=== PATIENT | male | born 1955 | race African-American/Black ===

== ENCOUNTER 2020-02-07 05:02 | Inpatient (IN) | payer OTHER ==
[~2020-02-07] VITALS: Ht 170.2 cm; Wt 120.7 kg
[2020-02-07] MEDS ORDERED: Morphine Sulfate 4mg/ml Inj (IV USE ONLY) IVP ONE (05:15)
[2020-02-07] MEDS ORDERED: Aspirin Baby 81mg ORAL ONE (05:15)
--- NOTE | 2020-02-07 05:15 | Emergency Room Report ---
History of Present Illness General Chief Complaint: Dyspnea/Respdistress Source: Patient (Shashank Smith MD) Present Illness HPI This is a 64-year-old male with a history of CHF, chronic pain and seizure. He presents with chief complaint of body pain, leg pain and shortness of breath. Onset 1 day. He was just admitted to [facility] 2 days ago and was just discharged yesterday. He came back here and called 911. Patient denies any fever or chills. Said his pain is 10 out of 10. [place] short of breath. Worse with exertion. Better with rest. No nausea no vomiting. No fever chills. (Shashank Smith MD) Allergies: Coded Allergies: No Known Allergies (Unverified , 02/07/20) COVID-19 Screening Contact w/high risk pt: Yes Experienced COVID-19 symptoms?: Yes COVID-19 Testing performed SENIOR SERVICE AIDE: No (Shashank Smith MD) Patient History Past Medical History: see triage record, old chart reviewed, HTN, CAD, CHF Past Surgical History: other Pertinent Family History: none Social History: Denies: smoking Immunizations: other Reviewed Nursing Documentation: PMH: Agreed; PSxH: Agreed (Shashank Smith MD) Nursing Documentation-PMH Hx Cardiac Problems: Yes - afib Hx Hypertension: Yes History Of Psychiatric Problem: Yes Hx Seizures: Yes (Shashank Smith MD) Review of Systems Eye: Denies: eye pain, blurred vision ENT: Denies: ear pain, nose congestion, throat swelling Respiratory: Reports: shortness of breath; Denies: cough Cardiovascular: Reports: chest pain; Denies: palpitations Gastrointestinal: Reports: abdominal pain; Denies: diarrhea, nausea, vomiting Musculoskeletal: Reports: muscle pain; Denies: back pain, joint pain Skin: Denies: rash Neurological: Denies: headache, numbness Endocrine: Denies: increased thirst, increased urine Hematologic/Lymphatic: Denies: easy bruising All Other Systems: negative except mentioned in HPI (Shashank Smith MD) Physical Exam Vital Signs Date Time Temp Pulse Resp B/P (MAP) Pulse Ox O2 Delivery O2 Flow Rate FiO2 02/07/20 05:03 97.3 98 20 124/86 (99) 95 Room Air Vitals unremarkable Sp02 EP Interpretation: reviewed, normal General Appearance: well appearing, no apparent distress, alert, obese Head: normocephalic, atraumatic Eyes: bilateral eye PERRL, bilateral eye EOMI ENT: hearing grossly normal, normal pharynx Neck: full range of motion, supple, no meningismus Respiratory: chest non-tender, rales Cardiovascular #1: no murmur, irregularly irregular Gastrointestinal: normal bowel sounds, non tender, no mass, no organomegaly, no bruit, non-distended Musculoskeletal: back normal, normal range of motion, gait/station normal, tender - Lymphedema and 1+ pitting edema, swelling Psychiatric: mood/affect normal (Shashank Smith MD) Medical Decision Making Diagnostic Impression: Primary Impression: Acute exacerbation of CHF (congestive heart failure) Qualified Codes: I50.9 - Heart failure, unspecified Additional Impressions: Atrial fibrillation with normal ventricular rate Chronic pain Qualified Codes: G89.4 - Chronic pain syndrome Morbid obesity Cocaine abuse ERIN (acute kidney injury) Anemia Qualified Codes: D64.9 - Anemia, unspecified ER Course Patient presents presents with shortness of breath and chest pain. He has CHF exacerbation. No evidence of ACS, PE, dissection to name a few. Patient will be admitted versus transfer. (Shsahank Smith MD) ER Course Patient was endorsed to me by Dr. Smith pending laboratory testing. Prior history of CHF. Patient had negative troponin with elevated BNP consistent with congestive heart failure. Had previously been given diuretics by Dr. Smith. Patient was endorsed with Dr. Magallon at [facility] who agreed to accept patient. Insurance company was unable to arrange a timely transfer. Patient was discussed with covering physician for [facility] due to panel physician. Labs Test 02/07/20 05:20 White Blood Count 6.4 K/UL (4.8-10.8) Red Blood Count 3.29 M/UL (4.70-6.10) Hemoglobin 8.0 G/DL (14.2-18.0) Hematocrit 28.5 % (42.0-52.0) Mean Corpuscular Volume 87 FL (80-99) Mean Corpuscular Hemoglobin 24.5 PG (27.0-31.0) Mean Corpuscular Hemoglobin Concent 28.2 G/DL (32.0-36.0) Red Cell Distribution Width 22.5 % (11.6-14.8) Platelet Count 240 K/UL (150-450) Mean Platelet Volume 6.0 FL (6.5-10.1) Neutrophils (%) (Auto) 61.9 % (45.0-75.0) Lymphocytes (%) (Auto) 21.1 % (20.0-45.0) Monocytes (%) (Auto) 11.3 % (1.0-10.0) Eosinophils (%) (Auto) 4.9 % (0.0-3.0) Basophils (%) (Auto) 0.8 % (0.0-2.0) Sodium Level 143 MMOL/L (136-145) Potassium Level 4.0 MMOL/L (3.5-5.1) Chloride Level 105 MMOL/L (98-107) Carbon Dioxide Level 30 MMOL/L (21-32) Anion Gap 8 mmol/L (5-15) Blood Urea Nitrogen 39 mg/dL (7-18) Creatinine 2.5 MG/DL (0.55-1.30) Estimat Glomerular Filtration Rate 31.5 mL/min (>60) Glucose Level 125 MG/DL (74-106) Calcium Level 8.4 MG/DL (8.5-10.1) Total Bilirubin 0.6 MG/DL (0.2-1.0) Aspartate Amino Transf (AST/SGOT) 37 U/L (15-37) Alanine Aminotransferase (ALT/SGPT) 24 U/L (12-78) Alkaline Phosphatase 143 U/L (46-116) Troponin I 0.015 ng/mL (0.000-0.056) Pro-B-Type Natriuretic Peptide 2558 pg/mL (0-125) Total Protein 7.1 G/DL (6.4-8.2) Albumin 2.6 G/DL (3.4-5.0) Globulin 4.5 g/dL Albumin/Globulin Ratio 0.6 (1.0-2.7) (Iggy Quinteros MD) EKG Diagnostic Results Rate: normal Rhythm: other ST Segments: other - NSST changes ASA given to the pt in ED: Yes (Shashank Smith MD) Rhythm Strip Diag. Results EP Interpretation: yes Rate: 94 Rhythm: no PVC's, no ectopy, other - afib (Shashank Smith MD) Chest X-Ray Diagnostic Results Chest X-Ray Diagnostic Results : Chest X-Ray Ordered: Yes # of Views/Limited/Complete: 1 View Indication: Shortness of Breath EP Interpretation: Yes Interpretation: no consolidation, no effusion, no pneumothorax, other - CM with chf Impression: Other - CM with chf Electronically Signed by: Shashank Smith MD (Shashank Smith MD) Last Vital Signs Date Time Temp Pulse Resp B/P (MAP) Pulse Ox O2 Delivery O2 Flow Rate FiO2 02/07/20 05:03 97.3 98 20 124/86 (99) 95 Room Air Status: improved (Shashank Smith MD) Status: improved (Iggy Quinteros MD) Disposition: ADMITTED INPATIENT Condition: Serious Shashank Smith MD Feb 07, 2020 05:15 Iggy Quinteros MD Feb 07, 2020 06:43
--- NOTE | 2020-02-07 05:46 | Diagnostic Imaging Report ---
EXAM: XR Chest, 1 View CLINICAL HISTORY: SOB TECHNIQUE: Frontal view of the chest. COMPARISON: No relevant prior studies available. FINDINGS: Lungs: Mild perihilar lower lobe mixed interstitial and alveolar infiltrates, likely representing pulmonary edema. Pleural space: Mild bilateral pleural effusions. No pneumothorax. Heart: Unremarkable. No cardiomegaly. Mediastinum: Unremarkable. Bones/joints: Unremarkable. Other findings: Moderate cardiomegaly IMPRESSION: 1. Perihilar and lower lobe infiltrates most consistent with pulmonary edema. Bilateral lower lobe pneumonia considered less likely. 2. Small bilateral pleural effusions
[2020-02-07 05:54] LABS: BASOPHILS % (AUTO) 0.8 % (0.0-2.0); EOSINOPHILS % (AUTO) 4.9 % (0.0-3.0); HEMATOCRIT 28.5 % (42.0-52.0); LYMPHOCYTES % (AUTO) 21.1 % (20.0-45.0); MEAN CORPUSCULAR VOLUME 87 FL (80-99); MONOCYTES % (AUTO) 11.3 % (1.0-10.0); NEUTROPHILS % (AUTO) 61.9 % (45.0-75.0); PLATELET COUNT 240 K/UL (150-450); RED BLOOD COUNT 3.29 M/UL (4.70-6.10); RED CELL DISTRIBUTION WIDTH 22.5 % (11.6-14.8); WHITE BLOOD COUNT 6.4 K/UL (4.8-10.8)
[2020-02-07 06:00] VITALS: BP 113/74
[2020-02-07 06:18] LABS: ALANINE AMINOTRANSFERASE 24 U/L (12-78); ALBUMIN 2.6 G/DL (3.4-5.0); ALBUMIN/GLOBULIN RATIO 0.6 (1.0-2.7); ALKALINE PHOSPHATASE 143 U/L (46-116); ANION GAP 8 mmol/L (5-15); ASPARTATE AMINO TRANSFERASE 37 U/L (15-37); BILIRUBIN,TOTAL 0.6 MG/DL (0.2-1.0); BLOOD UREA NITROGEN 39 mg/dL (7-18); CALCIUM 8.4 MG/DL (8.5-10.1); CARBON DIOXIDE 30 MMOL/L (21-32); CHLORIDE 105 MMOL/L (98-107); CREATININE 2.5 MG/DL (0.55-1.30); SODIUM 143 MMOL/L (136-145)
[2020-02-07 06:50] VITALS: BP 107/62
[2020-02-07 07:30] VITALS: BP 107/68
[2020-02-07 08:00] VITALS: BP 123/52
[2020-02-07] MEDS: Heparin 5000 units/ml inj SUBQ SCH ×2 (09:06→20:36)
[2020-02-07] MEDS ORDERED: NORCO 5-325 TA1 EAC1 ORAL (09:17)
[2020-02-07] MEDS ORDERED: SEROQUEL100 MG ORAL (09:17)
[2020-02-07 09:45] VITALS: BP 125/85
--- NOTE | 2020-02-07 10:41 | History and Physical ---
History of Present Illness General Date patient seen: Feb 07, 2020 Time patient seen: 10:31 Reason for Hospitalization: Heart failure exacerbation Present Illness HPI This is a 64 year old male with a history of CHF who was reportedly just discharged from [facility] yesterday. who is presenting with recurrent shortness of breath. He refused to answer most of my questions and I was not able to obtain a history from him. History per ED report was that he was admitted to [facility] and discharged yesterday. He presented again with shortness of breath. Evaluation in the ED showed EKG/troponin reassuring for ACS although BNP was very elevated. His exam also was consistent with volume overload so he was given Lasix and then admitted for further management of heart failure. Allergies: Coded Allergies: No Known Allergies (Unverified , 02/07/20) COVID-19 Screening Contact w/high risk pt: Yes Experienced COVID-19 symptoms?: Yes COVID-19 symptoms experienced: Shortness of Breath Medication History Scheduled Quetiapine Fumarate* (Seroquel*), 300 MG ORAL DAILY, (Reported) Scheduled PRN Hydrocodone Bit/Acetaminophen 5-325* ([place] 5-325 Tablet*), 1 TAB ORAL Q4H PRN for For Pain, (Reported) Medications Narrative refused to tell me what medications he takes Patient History Limited by: other - refusal History Provided By: Patient, Medical Record Healthcare decision maker N Resuscitation status Advanced Directive on File Past Medical/Surgical History Past Medical/Surgical History: (1) Depression (2) Heart failure (3) Atrial fibrillation with normal ventricular rate (4) Chronic pain Family History Family History: Patient reports no known family medical history. Review of Systems ROS Narrative unable to obtain review of systems as patient refusing to answer questions Physical Exam General Appearance: lethargic, other - sleepy but arousable, non-cooperative Lines, tubes and drains: peripheral HEENT: normocephalic, atraumatic, anicteric, PERRL Neck: non-tender, normal alignment, supple, normal inspection Respiratory/Chest: chest wall non-tender, no respiratory distress, crackles/ rales Cardiovascular/Chest: normal rate, JVD, irregularly irregular Abdomen: normal bowel sounds, non tender, distended Extremities: severe edema Skin Exam: normal pigmentation, warm/dry Neurologic: no motor/sensory deficits, other - refuses to cooperate with exam or questioning. movign all extremities spontaneously Last 24 Hour Vital Signs Date Time Temp Pulse Resp B/P (MAP) Pulse Ox O2 Delivery O2 Flow Rate FiO2 02/07/20 10:06 97 Nasal Cannula 2.0 28 02/07/20 09:13 82 26 132/99 95 Nasal Cannula 2.0 02/07/20 08:00 90 20 123/52 96 Nasal Cannula 2.0 02/07/20 07:30 91 20 107/68 94 Room Air 02/07/20 06:50 97.3 84 18 107/62 96 Room Air 02/07/20 06:09 97.3 02/07/20 06:00 97.3 94 24 113/74 96 Room Air 02/07/20 05:20 98 20 Room Air 02/07/20 05:03 97.3 98 20 124/86 (99) 95 Room Air Laboratory Tests Test 02/07/20 05:20 02/07/20 09:56 White Blood Count 6.4 K/UL (4.8-10.8) Red Blood Count 3.29 M/UL (4.70-6.10) L Hemoglobin 8.0 G/DL (14.2-18.0) L Hematocrit 28.5 % (42.0-52.0) L Mean Corpuscular Volume 87 FL (80-99) Mean Corpuscular Hemoglobin 24.5 PG (27.0-31.0) L Mean Corpuscular Hemoglobin Concent 28.2 G/DL (32.0-36.0) L Red Cell Distribution Width 22.5 % (11.6-14.8) H Platelet Count 240 K/UL (150-450) Mean Platelet Volume 6.0 FL (6.5-10.1) L Neutrophils (%) (Auto) 61.9 % (45.0-75.0) Lymphocytes (%) (Auto) 21.1 % (20.0-45.0) Monocytes (%) (Auto) 11.3 % (1.0-10.0) H Eosinophils (%) (Auto) 4.9 % (0.0-3.0) H Basophils (%) (Auto) 0.8 % (0.0-2.0) Sodium Level 143 MMOL/L (136-145) Potassium Level 4.0 MMOL/L (3.5-5.1) Chloride Level 105 MMOL/L (98-107) Carbon Dioxide Level 30 MMOL/L (21-32) Anion Gap 8 mmol/L (5-15) Blood Urea Nitrogen 39 mg/dL (7-18) H Creatinine 2.5 MG/DL (0.55-1.30) H Estimat Glomerular Filtration Rate 31.5 mL/min (>60) Glucose Level 125 MG/DL (74-106) H Calcium Level 8.4 MG/DL (8.5-10.1) L Total Bilirubin 0.6 MG/DL (0.2-1.0) Aspartate Amino Transf (AST/SGOT) 37 U/L (15-37) Alanine Aminotransferase (ALT/SGPT) 24 U/L (12-78) Alkaline Phosphatase 143 U/L (46-116) H Troponin I 0.015 ng/mL (0.000-0.056) Pro-B-Type Natriuretic Peptide 2558 pg/mL (0-125) H Total Protein 7.1 G/DL (6.4-8.2) Albumin 2.6 G/DL (3.4-5.0) L Globulin 4.5 g/dL Albumin/Globulin Ratio 0.6 (1.0-2.7) L Arterial Blood pH 7.382 (7.350-7.450) Arterial Blood Partial Pressure CO2 43.3 mmHg (35.0-45.0) Arterial Blood Partial Pressure O2 103.7 mmHg (75.0-100.0) H Arterial Blood HCO3 25.2 mmol/L (22.0-26.0) Arterial Blood Oxygen Saturation 97.0 % (95-100) Arterial Blood Base Excess 0 (-2-2) Daniel Test Positive Height (Feet): 5 Height (Inches): 8.00 Weight (Pounds): 230 Medications Current Medications Medications (Trade) Dose Ordered Sig/Radha Route PRN Reason Start Time Stop Time Status Last Admin Dose Admin Dextrose (Dextrose 50%) 25 ml Q30M PRN IV Hypoglycemia 02/07/20 08:00 05/07/20 07:59 Dextrose (Dextrose 50%) 50 ml Q30M PRN IV Hypoglycemia 02/07/20 08:00 05/07/20 07:59 Furosemide (Lasix) 80 mg ONCE IV 7/26/20 10:00 02/07/20 11:00 Heparin Sodium (Porcine) (Heparin 5000 units/ml) 5,000 units EVERY 12 HOURS SUBQ 02/07/20 09:00 03/23/20 08:59 02/07/20 09:06 Assessment/Plan Problem List: (1) Acute exacerbation of CHF (congestive heart failure) ICD Codes: I50.9 - Heart failure, unspecified SNOMED: 430610878, [id number] Qualifiers: Qualified Codes: I50.9 - Heart failure, unspecified (2) Atrial fibrillation with normal ventricular rate ICD Codes: I48.91 - Unspecified atrial fibrillation SNOMED: 77159544 (3) Depression ICD Codes: F32.9 - Major depressive disorder, single episode, unspecified SNOMED: 18043800 (4) Chronic pain ICD Codes: G89.29 - Other chronic pain SNOMED: 20245928 Qualifiers: Qualified Codes: G89.4 - Chronic pain syndrome (5) Morbid obesity ICD Codes: E66.01 - Morbid (severe) obesity due to excess calories SNOMED: 192438152 Status: stable Assessment/Plan: 64 year old man with reported history of heart failure, seizure, chronic pain who is presenting after recent discharge from outside hospital with shortness of breath consistent with heart failure exacerbation #Acute decompensated left sided heart failure: unknown prior cardiac history: unclear trigger as patient refusing to answer history - obtain records from [facility] - perform TTE - did not respond to Lasix 40 mg IV in ED, will trial more aggressive diuretic regimen - send TSH, HIV, A1c, lipid panel - check ABG #Atrial fibrillation: - [id number] vasc score elevated warranting anticoagulation but patient appears to be non compliant given that he does not appear to have any medications including heart failure medications - will obtain records first and discuss anticoagulation with patient - currently rate controlled #ERIN vs CKD: Creatinine 2.5, unknown baseline - obtain outside records - perform renal US, send urine lytes - Nephrology consulted, Dr. Martin, will follow up recommendations #Depression/Anxiety - resume prior Seroquel #Chronic pain: generalized, has opioids as a home medication - will hold off on all opioids #Dispo: Patient will need to be admitted for at least 2 midnights inpatient. He is in gross volume overload and needs evaluation of his heart failure. He is of high risk of decompensation and from heart failure given his poor outpatient follow up. I spent over 80 minutes on this case, with > 50% [id number] with patient and counseling although he was resistant to counseling and questioning mostly. Also coordinated with Resource Management Specialist, RN, and Srinivasa Troy M.D. Feb 07, 2020 10:41
[2020-02-07 11:30] VITALS: BP 129/97
--- NOTE | 2020-02-07 13:04 | Consultation ---
History of Present Illness General Date patient seen: Feb 07, 2020 Chief Complaint: Dyspnea/Respdistress Reason for Consultation: ERIN, cardiorenal syndrome Present Illness HPI This is a 64 year old male with a history of CHF who was reportedly just discharged from [facility] yesterday. who is presenting with recurrent shortness of breath. History per ED report was that he was admitted to [facility] and discharged yesterday. He presented again with shortness of breath. Evaluation in the ED showed EKG/troponin reassuring for ACS although BNP was very elevated. His exam also was consistent with volume overload so he was given Lasix and then admitted for further management of heart failure. Allergies: Coded Allergies: No Known Allergies (Unverified , 02/07/20) Medication History Scheduled Quetiapine Fumarate* (Seroquel*), 300 MG ORAL DAILY, (Reported) Scheduled PRN Hydrocodone Bit/Acetaminophen 5-325* ([place] 5-325 Tablet*), 1 TAB ORAL Q4H PRN for For Pain, (Reported) Patient History Healthcare decision maker N Resuscitation status Advanced Directive on File Review of Systems Constitutional: Reports: malaise, weakness Eye: Denies: no symptoms, see HPI, eye pain, blurred vision, tearing, double vision, nose pain, nose congestion, acuity changes, discharge, other ENT: Denies: no symptoms, see HPI, ear pain, ear discharge, nose pain, nose congestion, throat pain, throat swelling, mouth pain, hearing loss, nasal discharge, other Respiratory: Reports: cough, orthopnea, shortness of breath Cardiovascular: Reports: chest pain, edema Gastrointestinal: Denies: no symptoms, see HPI, abdominal pain, constipation, diarrhea, nausea, vomiting, melena, hematemesis, other Genitourinary: Denies: no symptoms, see HPI, discharge, dysuria, frequency, hematuria, pain, retention, incontinence, urgency, vag bleed/dc, other Musculoskeletal: Denies: no symptoms, see HPI, back pain, gout, joint pain, joint swelling, muscle pain, muscle stiffness, other Skin: Denies: no symptoms, see HPI, rash, change in color, change in hair/nails , dryness, lesions, other Psychiatric: Denies: no symptoms, see HPI, prior hx, anxiety, depressed feelings, emotional problems, SI, HI, hallucinations, other Neurological: Denies: no symptoms, see HPI, headache, numbness, paresthesia, seizure, tingling, tremors, focal weakness, syncope, dizziness, other Endocrine: Denies: no symptoms, see HPI, excessive sweating, flushing, intolerance to temperature, increased thirst, increased urine, unexplained weight loss, other Hematologic/Lymphatic: Denies: no symptoms, see HPI, anemia, blood clots, easy bleeding, easy bruising, swollen glands, diathesis, other Physical Exam General Appearance: no apparent distress Lines, tubes and drains: peripheral HEENT: normocephalic, atraumatic Neck: non-tender, normal alignment, supple, normal inspection Respiratory/Chest: chest wall non-tender, crackles/rales Cardiovascular/Chest: normal peripheral pulses, normal rate, regular rhythm, JVD Abdomen: normal bowel sounds, non tender, soft Extremities: normal range of motion, moderate edema, pitting Neurologic: alert, oriented x 3 Last 24 Hour Vital Signs Date Time Temp Pulse Resp B/P (MAP) Pulse Ox O2 Delivery O2 Flow Rate FiO2 02/07/20 11:30 97.5 92 22 129/97 (108) 97 02/07/20 10:06 97 Nasal Cannula 2.0 28 02/07/20 10:00 Nasal Cannula 2.0 02/07/20 09:45 97.9 94 24 125/85 (98) 100 02/07/20 09:13 82 26 132/99 95 Nasal Cannula 2.0 02/07/20 08:00 90 20 123/52 96 Nasal Cannula 2.0 02/07/20 07:30 91 20 107/68 94 Room Air 02/07/20 06:50 97.3 84 18 107/62 96 Room Air 02/07/20 06:09 97.3 02/07/20 06:00 97.3 94 24 113/74 96 Room Air 02/07/20 05:20 98 20 Room Air 02/07/20 05:03 97.3 98 20 124/86 (99) 95 Room Air Laboratory Tests Test 02/07/20 05:20 02/07/20 09:56 White Blood Count 6.4 K/UL (4.8-10.8) Red Blood Count 3.29 M/UL (4.70-6.10) L Hemoglobin 8.0 G/DL (14.2-18.0) L Hematocrit 28.5 % (42.0-52.0) L Mean Corpuscular Volume 87 FL (80-99) Mean Corpuscular Hemoglobin 24.5 PG (27.0-31.0) L Mean Corpuscular Hemoglobin Concent 28.2 G/DL (32.0-36.0) L Red Cell Distribution Width 22.5 % (11.6-14.8) H Platelet Count 240 K/UL (150-450) Mean Platelet Volume 6.0 FL (6.5-10.1) L Neutrophils (%) (Auto) 61.9 % (45.0-75.0) Lymphocytes (%) (Auto) 21.1 % (20.0-45.0) Monocytes (%) (Auto) 11.3 % (1.0-10.0) H Eosinophils (%) (Auto) 4.9 % (0.0-3.0) H Basophils (%) (Auto) 0.8 % (0.0-2.0) Sodium Level 143 MMOL/L (136-145) Potassium Level 4.0 MMOL/L (3.5-5.1) Chloride Level 105 MMOL/L (98-107) Carbon Dioxide Level 30 MMOL/L (21-32) Anion Gap 8 mmol/L (5-15) Blood Urea Nitrogen 39 mg/dL (7-18) H Creatinine 2.5 MG/DL (0.55-1.30) H Estimat Glomerular Filtration Rate 31.5 mL/min (>60) Glucose Level 125 MG/DL (74-106) H Calcium Level 8.4 MG/DL (8.5-10.1) L Total Bilirubin 0.6 MG/DL (0.2-1.0) Aspartate Amino Transf (AST/SGOT) 37 U/L (15-37) Alanine Aminotransferase (ALT/SGPT) 24 U/L (12-78) Alkaline Phosphatase 143 U/L (46-116) H Troponin I 0.015 ng/mL (0.000-0.056) Pro-B-Type Natriuretic Peptide 2558 pg/mL (0-125) H Total Protein 7.1 G/DL (6.4-8.2) Albumin 2.6 G/DL (3.4-5.0) L Globulin 4.5 g/dL Albumin/Globulin Ratio 0.6 (1.0-2.7) L Arterial Blood pH 7.382 (7.350-7.450) Arterial Blood Partial Pressure CO2 43.3 mmHg (35.0-45.0) Arterial Blood Partial Pressure O2 103.7 mmHg (75.0-100.0) H Arterial Blood HCO3 25.2 mmol/L (22.0-26.0) Arterial Blood Oxygen Saturation 97.0 % (95-100) Arterial Blood Base Excess 0 (-2-2) Daniel Test Positive Height (Feet): 5 Height (Inches): 7.00 Weight (Pounds): 281 Medications Current Medications Medications (Trade) Dose Ordered Sig/Radha Route PRN Reason Start Time Stop Time Status Last Admin Dose Admin Dextrose (Dextrose 50%) 25 ml Q30M PRN IV Hypoglycemia 02/07/20 08:00 05/07/20 07:59 Dextrose (Dextrose 50%) 50 ml Q30M PRN IV Hypoglycemia 02/07/20 08:00 05/07/20 07:59 Heparin Sodium (Porcine) (Heparin 5000 units/ml) 5,000 units EVERY 12 HOURS SUBQ 02/07/20 09:00 03/23/20 08:59 02/07/20 09:06 Assessment/Plan Diagnosis [place] I: #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 Feb 07, 2020 13:04
[2020-02-07 13:29] LABS: APPEARANCE,URINE CLEAR; BILIRUBIN, URINE NEGATIVE (NEGATIVE); GLUCOSE, URINE (UA) NEGATIVE (NEGATIVE); KETONES,URINE NEGATIVE (NEGATIVE); LEUKOCYTE ESTERASE ,URINE 1+ (NEGATIVE); NITRITE,URINE NEGATIVE (NEGATIVE); PH,URINE 5 (4.5-8.0); PROTEIN,URINE 1+ (NEGATIVE); UROBILINOGEN,URINE NORMAL MG/DL (0.0-1.0)
--- NOTE | 2020-02-07 13:31 | Diagnostic Imaging Report ---
EXAM: US Retroperitoneal Complete, Renal CLINICAL HISTORY: RENAL-A TECHNIQUE: Real-time complete ultrasound of the retroperitoneum with image documentation. COMPARISON: No relevant prior studies available. FINDINGS: Right kidney: 2.4 x 1.6 x 2.5 cm anechoic simple right renal cyst. Right kidney measures 10.4 0.5 x 6.0 cm. No stones. No hydronephrosis. Left kidney: Limited evaluation. Left kidney measures 9.6 x 4.5 cm. No stones. No hydronephrosis. Bladder: Unremarkable as visualized. Other findings: Incidental note of gallstones. IMPRESSION: 1. 2.4 x 1.6 x 2.5 cm right renal cyst. No hydronephrosis. 2. Left kidney not fully visualized, patient refused to continue exam. No gross abnormality. 3. Incidental note of gallstones.
[2020-02-07 13:45] LABS: COLOR,URINE YELLOW
[2020-02-07] MEDS: traMADol 50mg tab ORAL PRN (20:32)
--- NOTE | 2020-02-07 21:03 | Neurology Progress Note ---
Interim History Interim History Interim History history of CHF who was reportedly just discharged from [facility] yesterday. who is presenting with recurrent shortness of breath. History per ED report was that he was admitted to [facility] and discharged yesterday. He presented again with shortness of breath. Evaluation in the ED showed EKG/troponin reassuring for ACS although BNP was very elevated. confused, tangential Objective Physical Exam Last Vital Signs Date Time Temp Pulse Resp B/P (MAP) Pulse Ox O2 Delivery O2 Flow Rate FiO2 02/07/20 16:00 85 02/07/20 11:30 97.5 22 129/97 (108) 97 02/07/20 10:06 Nasal Cannula 2.0 28 Laboratory Tests Test 02/07/20 05:20 02/07/20 09:56 02/07/20 13:17 White Blood Count 6.4 K/UL (4.8-10.8) Red Blood Count 3.29 M/UL (4.70-6.10) L Hemoglobin 8.0 G/DL (14.2-18.0) L Hematocrit 28.5 % (42.0-52.0) L Mean Corpuscular Volume 87 FL (80-99) Mean Corpuscular Hemoglobin 24.5 PG (27.0-31.0) L Mean Corpuscular Hemoglobin Concent 28.2 G/DL (32.0-36.0) L Red Cell Distribution Width 22.5 % (11.6-14.8) H Platelet Count 240 K/UL (150-450) Mean Platelet Volume 6.0 FL (6.5-10.1) L Neutrophils (%) (Auto) 61.9 % (45.0-75.0) Lymphocytes (%) (Auto) 21.1 % (20.0-45.0) Monocytes (%) (Auto) 11.3 % (1.0-10.0) H Eosinophils (%) (Auto) 4.9 % (0.0-3.0) H Basophils (%) (Auto) 0.8 % (0.0-2.0) Sodium Level 143 MMOL/L (136-145) Potassium Level 4.0 MMOL/L (3.5-5.1) Chloride Level 105 MMOL/L (98-107) Carbon Dioxide Level 30 MMOL/L (21-32) Anion Gap 8 mmol/L (5-15) Blood Urea Nitrogen 39 mg/dL (7-18) H Creatinine 2.5 MG/DL (0.55-1.30) H Estimat Glomerular Filtration Rate 31.5 mL/min (>60) Glucose Level 125 MG/DL (74-106) H Calcium Level 8.4 MG/DL (8.5-10.1) L Total Bilirubin 0.6 MG/DL (0.2-1.0) Aspartate Amino Transf (AST/SGOT) 37 U/L (15-37) Alanine Aminotransferase (ALT/SGPT) 24 U/L (12-78) Alkaline Phosphatase 143 U/L (46-116) H Troponin I 0.015 ng/mL (0.000-0.056) Pro-B-Type Natriuretic Peptide 2558 pg/mL (0-125) H Total Protein 7.1 G/DL (6.4-8.2) Albumin 2.6 G/DL (3.4-5.0) L Globulin 4.5 g/dL Albumin/Globulin Ratio 0.6 (1.0-2.7) L Arterial Blood pH 7.382 (7.350-7.450) Arterial Blood Partial Pressure CO2 43.3 mmHg (35.0-45.0) Arterial Blood Partial Pressure O2 103.7 mmHg (75.0-100.0) H Arterial Blood HCO3 25.2 mmol/L (22.0-26.0) Arterial Blood Oxygen Saturation 97.0 % (95-100) Arterial Blood Base Excess 0 (-2-2) Daniel Test Positive Urine Color Yellow Urine Appearance Clear Urine pH 5 (4.5-8.0) Urine Specific [place] 1.015 (1.005-1.035) Urine Protein 1+ (NEGATIVE) H Urine Glucose (UA) Negative (NEGATIVE) Urine Ketones Negative (NEGATIVE) Urine Blood Negative (NEGATIVE) Urine Nitrite Negative (NEGATIVE) Urine Bilirubin Negative (NEGATIVE) Urine Urobilinogen Normal MG/DL (0.0-1.0) Urine Leukocyte Esterase 1+ (NEGATIVE) H Urine RBC 0 /HPF (0 - 0) Urine WBC 0-2 /HPF (0 - 0) Urine Squamous Epithelial Cells Occasional /LPF Urine Bacteria Occasional /HPF (NONE) Urine Random Total Protein 25 MG/DL (< 11.9) H Urine Random Sodium 27 mmol/L (20-110) Urine Creatinine 116.3 MG/DL (30.0-125.0) Urine Potassium Timed 45 mmol/L (12-62) Urine Opiates Screen Negative (NEGATIVE) Urine Barbiturates Screen Negative (NEGATIVE) Phencyclidine (PCP) Screen Negative (NEGATIVE) Urine Amphetamines Screen Negative (NEGATIVE) Urine Benzodiazepines Screen Negative (NEGATIVE) Urine Cocaine Screen Positive (NEGATIVE) H Urine Marijuana (THC) Screen Negative (NEGATIVE) Head: normocophalic Neck: no rigidity EENT: benign Neurologic Exam Mental Status: oriented x4 Cranial Nerve II: visual davis Cranial Nerves III, IV, : PERRLA Cranial Nerve VII: no facial asymmetry Stance: normal Impression/Recommendations Problems: (1) Morbid obesity (2) Chronic pain (3) Atrial fibrillation with normal ventricular rate (4) Heart failure (5) Depression (6) Acute exacerbation of CHF (congestive heart failure) (7) Cocaine abuse (8) Anxiety (9) ERIN (acute kidney injury) (10) Anemia Status: stable Diagnostic Impression Seizure disorder Cocaine abuse Likely provoked no a eds pT OT Jered Ramirez MD Feb 07, 2020 21:03
--- NOTE | 2020-02-08 00:05 | Initial Psychiatric Evaluation ---
Psychiatry Consultation Psychiatry Consultation Chief Complaint: Dyspnea/Respdistress Allergies: Coded Allergies: No Known Allergies (Unverified , 02/07/20) Medication History Scheduled Quetiapine Fumarate* (Seroquel*), 300 MG ORAL DAILY, (Reported) Scheduled PRN Hydrocodone Bit/Acetaminophen 5-325* ([place] 5-325 Tablet*), 1 TAB ORAL Q4H PRN for For Pain, (Reported) Objective Data Height (Feet): 5 Height (Inches): 7.00 Weight (Pounds): 281 Yassine Fu MD Feb 08, 2020 00:05
[2020-02-08 08:00] VITALS: BP 124/100
--- NOTE | 2020-02-08 08:21 | Cardiac Electrophysiology PN ---
Subjective Subjective [id number] Objective Last 24 Hour Vital Signs Date Time Temp Pulse Resp B/P (MAP) Pulse Ox O2 Delivery O2 Flow Rate FiO2 02/08/20 08:00 96.8 100 22 124/100 (108) 97 02/08/20 04:00 20 02/08/20 00:00 20 02/07/20 22:24 Nasal Cannula 2.0 02/07/20 21:02 97.5 02/07/20 20:00 20 02/07/20 16:00 85 02/07/20 12:00 88 02/07/20 11:30 97.5 92 22 129/97 (108) 97 02/07/20 10:27 84 02/07/20 10:06 97 Nasal Cannula 2.0 28 02/07/20 10:00 Nasal Cannula 2.0 02/07/20 09:45 97.9 94 24 125/85 (98) 100 02/07/20 09:13 82 26 132/99 95 Nasal Cannula 2.0 Intake and Output 02/07/20 02/08/20 19:00 07:00 Intake Total 660 ml Output Total 700 ml 1000 ml Balance -40 ml -1000 ml Intake Oral 660 ml Output Urine Total 600 ml 1000 ml Emesis 100 ml # Voids 5 # Bowel Movements 1 Laboratory Tests Test 02/07/20 09:56 02/07/20 13:17 Arterial Blood pH 7.382 (7.350-7.450) Arterial Blood Partial Pressure CO2 43.3 mmHg (35.0-45.0) Arterial Blood Partial Pressure O2 103.7 mmHg (75.0-100.0) H Arterial Blood HCO3 25.2 mmol/L (22.0-26.0) Arterial Blood Oxygen Saturation 97.0 % (95-100) Arterial Blood Base Excess 0 (-2-2) Daniel Test Positive Urine Color Yellow Urine Appearance Clear Urine pH 5 (4.5-8.0) Urine Specific [place] 1.015 (1.005-1.035) Urine Protein 1+ (NEGATIVE) H Urine Glucose (UA) Negative (NEGATIVE) Urine Ketones Negative (NEGATIVE) Urine Blood Negative (NEGATIVE) Urine Nitrite Negative (NEGATIVE) Urine Bilirubin Negative (NEGATIVE) Urine Urobilinogen Normal MG/DL (0.0-1.0) Urine Leukocyte Esterase 1+ (NEGATIVE) H Urine RBC 0 /HPF (0 - 0) Urine WBC 0-2 /HPF (0 - 0) Urine Squamous Epithelial Cells Occasional /LPF Urine Bacteria Occasional /HPF (NONE) Urine Random Total Protein 25 MG/DL (< 11.9) H Urine Random Sodium 27 mmol/L (20-110) Urine Creatinine 116.3 MG/DL (30.0-125.0) Urine Potassium Timed 45 mmol/L (12-62) Urine Opiates Screen Negative (NEGATIVE) Urine Barbiturates Screen Negative (NEGATIVE) Phencyclidine (PCP) Screen Negative (NEGATIVE) Urine Amphetamines Screen Negative (NEGATIVE) Urine Benzodiazepines Screen Negative (NEGATIVE) Urine Cocaine Screen Positive (NEGATIVE) H Urine Marijuana (THC) Screen Negative (NEGATIVE) Jorden Campos MD Feb 08, 2020 08:21
--- NOTE | 2020-02-08 08:39 | General Progress Note ---
Assessment/Plan Problem List: (1) Acute exacerbation of CHF (congestive heart failure) ICD Codes: I50.9 - Heart failure, unspecified SNOMED: 881540156, 84432988833191 Qualifiers: Qualified Codes: I50.9 - Heart failure, unspecified (2) Atrial fibrillation with normal ventricular rate ICD Codes: I48.91 - Unspecified atrial fibrillation SNOMED: 78697217 (3) Depression ICD Codes: F32.9 - Major depressive disorder, single episode, unspecified SNOMED: 24882725 (4) Chronic pain ICD Codes: G89.29 - Other chronic pain SNOMED: 81441210 Qualifiers: Qualified Codes: G89.4 - Chronic pain syndrome (5) Morbid obesity ICD Codes: E66.01 - Morbid (severe) obesity due to excess calories SNOMED: 789578581 (6) Cocaine abuse ICD Codes: F14.10 - Cocaine abuse, uncomplicated SNOMED: 39689947 Status: stable Assessment/Plan: 64 year old man with reported history of heart failure, seizure, chronic pain who is presenting after recent discharge from outside hospital with shortness of breath consistent with heart failure exacerbation #Acute decompensated left sided heart failure: unknown prior cardiac history: possibly related to cocaine/substance abuse given history - obtained records from [facility], please see prior note for summary of findings - perform TTE: EF 55%, atrial fibrillation unable to characterize degree of diastolic dysfunction - Per I&O, net negative 1L, will trial metolazone and Lasix, will consider dobutamine drip but given patient's hostility and belligerence toward nursing, may be unsafe - follow up TSH, HIV, A1c, lipid panel - Cardiology Dr. Campos following, appreciate recommendations #Atrial fibrillation: - [id number] vasc score elevated warranting anticoagulation but patient appears to be non compliant - risks of starting anticoagulation in a non-compliant patient with substance abuse outweigh benefits at this time, especially in the short term - currently rate controlled #ERIN vs CKD: Creatinine 2.5, was around ~ 2 per outside records in preceding month. worsening could be from cardiorenal etiology - refusing renal US, send urine lytes - Nephrology consulted, Dr. Martin, appreciate recommendations #Cocaine Abuse #Depression/Anxiety - resume prior Seroquel - Psychiatry Dr. Fu consulted, appreciate recommendations #Chronic pain: generalized, has opioids as a home medication - limit opioids as the benefit of opioids for generalized chronic pain has no evidence #Reported history of seizure - phenytoin listed as an outpatient medication. has interaction with Seroquel. patient has been non-compliant with medication and has no evidence of seizure activity. possibly had prior seizure in setting of drug abuse - Neurology Dr. Ramirez following, appreciate recommendations #Dispo: He continues to be in gross volume overload and needs evaluation of his heart failure. He is of high risk of decompensation and from heart failure given his poor outpatient follow up. Given hostility and aggressive behavior toward staff, difficult to provide care. Anticipate > 3-4 days to diurese him. If he continues to refuse care, will involve ethics and psychiatry to discuss his capacity to refuse care I spent over 40 minutes on this case, with > 50% [id number] with patient and counseling although he was resistant to counseling and questioning mostly. Also coordinated with Utility Tractor Operator, Clinical Nursing Instructor, Psychiatrist, Neurologist, RN Subjective Date patient seen: Feb 08, 2020 Time patient seen: 08:28 ROS Limited/Unobtainable: Yes - patient refusing to answer, extremely aggressive and belligerent Allergies: Coded Allergies: No Known Allergies (Unverified , 02/07/20) Subjective patient refusing to answer questions. throwing soiled objects at nursing. screaming "fuck you bitch mind your own business" Objective Last 24 Hour Vital Signs Date Time Temp Pulse Resp B/P (MAP) Pulse Ox O2 Delivery O2 Flow Rate FiO2 02/08/20 08:00 96.8 100 22 124/100 (108) 97 02/08/20 04:00 20 02/08/20 00:00 20 02/07/20 22:24 Nasal Cannula 2.0 02/07/20 21:02 97.5 02/07/20 20:00 20 02/07/20 16:00 85 02/07/20 12:00 88 02/07/20 11:30 97.5 92 22 129/97 (108) 97 02/07/20 10:27 84 02/07/20 10:06 97 Nasal Cannula 2.0 28 02/07/20 10:00 Nasal Cannula 2.0 02/07/20 09:45 97.9 94 24 125/85 (98) 100 7/26/20 09:13 82 26 132/99 95 Nasal Cannula 2.0 Intake and Output 02/07/20 02/08/20 19:00 07:00 Intake Total 660 ml Output Total 700 ml 1000 ml Balance -40 ml -1000 ml Intake Oral 660 ml Output Urine Total 600 ml 1000 ml Emesis 100 ml # Voids 5 # Bowel Movements 1 Laboratory Tests 02/07/20 09:56: Arterial Blood pH 7.382, Arterial Blood Partial Pressure CO2 43.3, Arterial Blood Partial Pressure O2 103.7H, Arterial Blood HCO3 25.2, Arterial Blood Oxygen Saturation 97.0, Arterial Blood Base Excess 0, Daniel Test Positive 02/07/20 13:17: Urine Color Yellow, Urine Appearance Clear, Urine pH 5, Urine Specific [place] 1.015, Urine Protein 1+H, Urine Glucose (UA) Negative, Urine Ketones Negative, Urine Blood Negative, Urine Nitrite Negative, Urine Bilirubin Negative, Urine Urobilinogen Normal, Urine Leukocyte Esterase 1+H, Urine RBC 0, Urine WBC 0-2, Urine Squamous Epithelial Cells Occasional, Urine Bacteria Occasional, Urine Random Total Protein 25H, Urine Random Sodium 27, Urine Creatinine 116.3, Urine Potassium Timed 45, Urine Opiates Screen Negative, Urine Barbiturates Screen Negative, Phencyclidine (PCP) Screen Negative, Urine Amphetamines Screen Negative, Urine Benzodiazepines Screen Negative, Urine Cocaine Screen PositiveH , Urine Marijuana (THC) Screen Negative Height (Feet): 5 Height (Inches): 7.00 Weight (Pounds): 281 General Appearance: no apparent distress, alert EENT: normal ENT inspection, pharynx normal Neck: normal alignment, normal inspection Cardiovascular: other - refused auscultation Respiratory/Chest: other Abdomen: other - refused exam Pelvis: other - refused exam Genitourinary/Rectal: other - refused exam Extremities: other - refused exam Edema: 2+ Leg (L), 2+ Leg (R) Neurologic: other - independently ambulatory in room Skin: normal pigmentation Srinivasa Franks M.D. Feb 08, 2020 08:39
[2020-02-08 09:04] LABS: BASOPHILS % (AUTO) 0.4 % (0.0-2.0); EOSINOPHILS % (AUTO) 2.4 % (0.0-3.0); LYMPHOCYTES % (AUTO) 19.2 % (20.0-45.0); MEAN CORPUSCULAR VOLUME 85 FL (80-99); MONOCYTES % (AUTO) 8.6 % (1.0-10.0); NEUTROPHILS % (AUTO) 69.5 % (45.0-75.0); PLATELET COUNT 206 K/UL (150-450); RED BLOOD COUNT 3.29 M/UL (4.70-6.10); RED CELL DISTRIBUTION WIDTH 21.7 % (11.6-14.8); WHITE BLOOD COUNT 8.9 K/UL (4.8-10.8)
[2020-02-08] MEDS: Heparin 5000 units/ml inj SUBQ SCH ×2 (09:22→20:01)
[2020-02-08 09:46] LABS: % IRON SATURATION 4 % (15-50); IRON 13 ug/dL (50-175); TOTAL IRON BINDING CAPACITY 351 ug/dL (250-450)
[2020-02-08 09:50] LABS: ANION GAP 5 mmol/L (5-15); BLOOD UREA NITROGEN 38 mg/dL (7-18); CALCIUM 8.6 MG/DL (8.5-10.1); CARBON DIOXIDE 32 MMOL/L (21-32); CHLORIDE 106 MMOL/L (98-107); CHOLESTEROL 84 MG/DL (< 200); CREATININE 2.1 MG/DL (0.55-1.30); FERRITIN 24 NG/ML (8-388); HDL CHOLESTEROL 44 MG/DL (40-60); POTASSIUM 3.6 MMOL/L (3.5-5.1); SODIUM 143 MMOL/L (136-145); TRIGLYCERIDES 46 MG/DL (30-150)
--- NOTE | 2020-02-08 10:15 | Consultation ---
DATE OF CONSULTATION: 02/08/2020 CARDIOLOGY CONSULTATION CONSULTING PHYSICIAN: Jorden Campos MD. REFERRING PHYSICIAN: Natty Trujillo MD. REASON FOR CONSULTATION: CHF exacerbation. HISTORY OF PRESENT ILLNESS: The patient is a 64-year-old gentleman with history of hypertension and congestive heart failure, was just discharged from [facility], who presented to the emergency room with increasing shortness of breath. The patient was noted to have anasarca with volume overload as well as renal failure. The patient was admitted for management of congestive heart failure. The patient also has chronic atrial fibrillation. He has been noncompliant and not even willing to monitor. At the time of my evaluation, he continues to be short of breath, but denies chest pain. REVIEW OF SYSTEMS: Negative other than what was mentioned in the history of present illness. PAST MEDICAL HISTORY: 1. Hypertension. 2. Congestive heart failure. 3. Atrial fibrillation. 4. Depression. 5. Obesity. PHYSICAL EXAMINATION: VITAL SIGNS: Show blood pressure of 124/100, pulse is 100, respirations 18, and temperature 96.8. HEAD AND NECK: Shows positive JVD. LUNGS: Decreased breath sounds. CARDIOVASCULAR: Shows irregularly irregular S1 and S2 with no gallop or murmur. ABDOMEN: Obese. EXTREMITIES: 3+ pitting edema. LABORATORY AND DIAGNOSTIC DATA: His EKG showed atrial fibrillation with rapid ventricular response and nonspecific ST-T wave abnormalities. Labs showed white count 6.4, hemoglobin 8, hematocrit 28.5, platelet count 240,000. Sodium 142, potassium 4.0, BUN of 39, creatinine 2.5, and glucose of 125. Troponin is negative. BNP is . ASSESSMENT AND PLAN: 1. Congestive heart failure exacerbation. This is likely due to diastolic dysfunction. His echocardiogram showed ejection fraction of 55%. I will put him on Lasix 80 mg IV b.i.d. and continue to follow him clinically. The patient may need additional doses of Bumex as well. 2. Atrial fibrillation. He is tachycardic. I will add Cardizem to his medical regimen 60 mg every 8 hours, that will have help for his blood pressure as well as atrial fibrillation. I will put him also on anticoagulation with Eliquis in view of renal failure with a low dose of 2.5 mg b.i.d. 3. Obesity. 4. Psychiatric. The patient is on Seroquel. 5. Severe anemia with hemoglobin of 8. 6. Renal failure. Creatinine of 2.5. Thank you very much for allowing me to participate in the care of this patient. Please do not hesitate to contact me for any questions regarding my evaluation. Jorden Campos M.D. DR: RICHARD JOB#: [id number] CC:
[2020-02-08] MEDS: dilTIAZem HCl 60mg tab ORAL SCH ×3 (12:00→23:13)
--- NOTE | 2020-02-08 13:25 | Nephrology Progress Note ---
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 #acute on chronic decompensated CHf #HTN #h/o coccaine use #Anemia #HLD - patient refusing meds - renal US- > no hydronephrosis - continue lasix 80 IV BID - strict I&Os - place johnson - monitor weights - consider spot dose with metolazone - check iron panel - monitor hemoglobin level time spent 70 min- greater than 50% on care coordination and counseling Subjective ROS Limited/Unobtainable: No Constitutional: Reports: weakness HEENT: Denies: no symptoms, eye pain, blurred vision, tearing, double vision, ear pain, ear discharge, nose pain, nose congestion, throat pain, throat swelling, mouth pain, mouth swelling, other Genitourinary: Denies: no symptoms, burning, discharge, frequency, flank pain, hematuria, incontinence, pain, urgency, other Neurologic/Psychiatric: Denies: no symptoms, anxiety, depressed, emotional problems, headache, numbness, paresthesia, pre-existing deficit, seizure, tingling, tremors, weakness, other Subjective Cr improved to 2.1 uop 1.7L yesterday refusing meds Objective Objective Last 24 Hour Vital Signs Date Time Temp Pulse Resp B/P (MAP) Pulse Ox O2 Delivery O2 Flow Rate FiO2 02/08/20 09:00 Room Air 02/08/20 08:00 96.8 100 22 124/100 (108) 97 02/08/20 04:00 20 02/08/20 00:00 20 02/07/20 22:24 Nasal Cannula 2.0 02/07/20 21:02 97.5 02/07/20 20:00 20 02/07/20 16:00 85 Intake and Output 02/07/20 02/08/20 19:00 07:00 Intake Total 660 ml Output Total 700 ml 1000 ml Balance -40 ml -1000 ml Intake Oral 660 ml Output Urine Total 600 ml 1000 ml Emesis 100 ml # Voids 5 # Bowel Movements 1 Laboratory Tests 02/08/20 08:30: White Blood Count 8.9, Red Blood Count 3.29L, Hemoglobin 8.0L, Hematocrit 28.0L , Mean Corpuscular Volume 85, Mean Corpuscular Hemoglobin 24.4L, Mean Corpuscular Hemoglobin Concent 28.6L, Red Cell Distribution Width 21.7H, Platelet Count 206, Mean Platelet Volume 5.6L, Neutrophils (%) (Auto) 69.5, Lymphocytes (%) (Auto) 19.2L, Monocytes (%) (Auto) 8.6, Eosinophils (%) (Auto) 2.4, Basophils (%) (Auto) 0.4, Sodium Level 143, Potassium Level 3.6, Chloride Level 106, Carbon Dioxide Level 32, Anion Gap 5, Blood Urea Nitrogen 38H, Creatinine 2.1H, Estimat Glomerular Filtration Rate 38.5, Glucose Level 129H, Hemoglobin A1c 5.8, Calcium Level 8.6, Magnesium Level 2.0, Iron Level 13L, Total Iron Binding Capacity 351, Percent Iron Saturation 4L, Unsaturated Iron Binding 338, Ferritin 24, Troponin I 0.005, Triglycerides Level 46, Cholesterol Level 84, LDL Cholesterol 28, HDL Cholesterol 44, Cholesterol/HDL Ratio 1.9L, Thyroid Stimulating Hormone (TSH) 2.082, HIV (1&2) Antibody Rapid Negative Height (Feet): 5 Height (Inches): 7.00 Weight (Pounds): 281 General Appearance: no apparent distress, alert EENT: PERRL/EOMI Neck: non-tender, normal alignment Cardiovascular: normal peripheral pulses, tachycardia, irregularly irregular Respiratory/Chest: crackles/rales Abdomen: normal bowel sounds, non tender, soft Extremities: moderate edema, pitting Neurologic: alert, oriented x 3 Dom Martin M.D. Feb 08, 2020 13:25
[2020-02-08 16:00] VITALS: BP 130/78
[2020-02-08] MEDS: traMADol 50mg tab ORAL PRN (19:50)
[2020-02-08 20:00] VITALS: BP 137/73
--- NOTE | 2020-02-08 21:44 | Neurology Progress Note ---
Interim History Interim History ROS Limited/Unobtainable: No Interim History no seizures reported Objective Physical Exam Last Vital Signs Date Time Temp Pulse Resp B/P (MAP) Pulse Ox O2 Delivery O2 Flow Rate FiO2 02/08/20 21:00 Room Air 02/08/20 20:20 97.8 02/08/20 20:00 95 20 137/73 (94) 100 02/07/20 22:24 2.0 02/07/20 10:06 28 Laboratory Tests Test 02/08/20 08:30 White Blood Count 8.9 K/UL (4.8-10.8) Red Blood Count 3.29 M/UL (4.70-6.10) L Hemoglobin 8.0 G/DL (14.2-18.0) L Hematocrit 28.0 % (42.0-52.0) L Mean Corpuscular Volume 85 FL (80-99) Mean Corpuscular Hemoglobin 24.4 PG (27.0-31.0) L Mean Corpuscular Hemoglobin Concent 28.6 G/DL (32.0-36.0) L Red Cell Distribution Width 21.7 % (11.6-14.8) H Platelet Count 206 K/UL (150-450) Mean Platelet Volume 5.6 FL (6.5-10.1) L Neutrophils (%) (Auto) 69.5 % (45.0-75.0) Lymphocytes (%) (Auto) 19.2 % (20.0-45.0) L Monocytes (%) (Auto) 8.6 % (1.0-10.0) Eosinophils (%) (Auto) 2.4 % (0.0-3.0) Basophils (%) (Auto) 0.4 % (0.0-2.0) Sodium Level 143 MMOL/L (136-145) Potassium Level 3.6 MMOL/L (3.5-5.1) Chloride Level 106 MMOL/L (98-107) Carbon Dioxide Level 32 MMOL/L (21-32) Anion Gap 5 mmol/L (5-15) Blood Urea Nitrogen 38 mg/dL (7-18) H Creatinine 2.1 MG/DL (0.55-1.30) H Estimat Glomerular Filtration Rate 38.5 mL/min (>60) Glucose Level 129 MG/DL (74-106) H Hemoglobin A1c 5.8 % (4.3-6.0) Calcium Level 8.6 MG/DL (8.5-10.1) Magnesium Level 2.0 MG/DL (1.8-2.4) Iron Level 13 ug/dL (50-175) L Total Iron Binding Capacity 351 ug/dL (250-450) Percent Iron Saturation 4 % (15-50) L Unsaturated Iron Binding 338 ug/dL (112-346) Ferritin 24 NG/ML (8-388) Troponin I 0.005 ng/mL (0.000-0.056) Triglycerides Level 46 MG/DL (30-150) Cholesterol Level 84 MG/DL (< 200) LDL Cholesterol 28 mg/dL (<100) HDL Cholesterol 44 MG/DL (40-60) Cholesterol/HDL Ratio 1.9 (3.3-4.4) L Thyroid Stimulating Hormone (TSH) 2.082 uiU/mL (0.358-3.740) HIV (1&2) Antibody Rapid Negative (NEGATIVE) Head: normocophalic Neck: no rigidity EENT: benign Neurologic Exam Mental Status: oriented x4 Cranial Nerve II: visual davis Cranial Nerves III, IV, : PERRLA Cranial Nerve VII: no facial asymmetry Stance: normal Impression/Recommendations Problems: (1) Morbid obesity (2) Chronic pain (3) Atrial fibrillation with normal ventricular rate (4) Heart failure (5) Depression (6) Acute exacerbation of CHF (congestive heart failure) (7) Cocaine abuse (8) Anxiety (9) ERIN (acute kidney injury) (10) Anemia Status: stable Diagnostic Impression Seizure disorder Cocaine abuse Likely provoked no a eds pT OT Jered Ramirez MD Feb 08, 2020 21:44
[2020-02-08 23:18] VITALS: BP 130/67
--- NOTE | 2020-02-08 23:36 | Psych Consult Progress Note ---
Psychiatry Progress Note Psychiatry Progress Note Subjective the pt is uncooperative and easily agitated "leave me alone" sleep adequate Medications Current Medications Medications (Trade) Dose Ordered Sig/Radha Route PRN Reason Start Time Stop Time Status Last Admin Dose Admin Acetaminophen (Tylenol) 650 mg Q4H PRN ORAL Mild Pain (Pain Scale 1-3) 02/07/20 13:45 03/08/20 13:44 Al Hydroxide/Mg Hydroxide (Mylanta) 30 ml Q6H PRN ORAL reflux pain 02/07/20 18:45 03/08/20 18:44 02/07/20 18:50 Dextrose (Dextrose 50%) 25 ml Q30M PRN IV Hypoglycemia 02/07/20 08:00 05/07/20 07:59 Dextrose (Dextrose 50%) 50 ml Q30M PRN IV Hypoglycemia 02/07/20 08:00 05/07/20 07:59 Diltiazem HCl (Cardizem Tab) 60 mg EVERY 6 HOURS ORAL 02/08/20 12:00 03/09/20 11:59 02/08/20 23:13 Famotidine (Pepcid I.v.) 20 mg Q12H PRN IVP reflux pain 02/07/20 18:45 03/08/20 18:44 Furosemide (Lasix) 100 mg Q12H IV 02/08/20 12:00 03/09/20 11:59 02/08/20 23:12 Heparin Sodium (Porcine) (Heparin 5000 units/ml) 5,000 units EVERY 12 HOURS SUBQ 02/07/20 09:00 03/23/20 08:59 02/08/20 20:01 Quetiapine Fumarate (SEROqueL) 300 mg QHS ORAL 02/07/20 21:00 03/23/20 20:59 02/08/20 20:00 Tramadol HCl (Ultram) 50 mg Q6H PRN ORAL moderate to severe pain 02/07/20 13:45 02/14/20 13:44 02/08/20 19:50 Neurological/Psychiatric: Reports: anxiety, depressed, emotional problems Allergies: Coded Allergies: No Known Allergies (Unverified , 02/07/20) Objective Data Height (Feet): 5 Height (Inches): 7.00 Weight (Pounds): 281 Additional Comments: awake, oriented . Mood is anxious. Affect is flat. Thought process, concrete. Thought content, no suicidal or homicidal ideation. Cognition is impaired. Insight and judgment is impaired. Assessment/Plan Problem List: (1) Anxiety ICD Codes: F41.9 - Anxiety disorder, unspecified SNOMED: 67929894 (2) Depression ICD Codes: F32.9 - Major depressive disorder, single episode, unspecified SNOMED: 71179114 Status: stable Assessment/Plan: cocaine abuse vs dependence cont seroquel the pt is reluctant to change medYassine Paredes MD Feb 08, 2020 23:36
[2020-02-09] MEDS: dilTIAZem HCl 60mg tab ORAL SCH ×4 (05:01→17:12)
[2020-02-09 06:50] LABS: ANION GAP 3 mmol/L (5-15); BLOOD UREA NITROGEN 33 mg/dL (7-18); CALCIUM 8.4 MG/DL (8.5-10.1); CARBON DIOXIDE 33 MMOL/L (21-32); CHLORIDE 104 MMOL/L (98-107); CREATININE 1.7 MG/DL (0.55-1.30); POTASSIUM 3.4 MMOL/L (3.5-5.1); SODIUM 140 MMOL/L (136-145)
[2020-02-09 08:00] VITALS: BP 122/50
[2020-02-09] MEDS: Heparin 5000 units/ml inj SUBQ SCH (08:45)
--- NOTE | 2020-02-09 09:24 | General Progress Note ---
Assessment/Plan Problem List: (1) Acute exacerbation of CHF (congestive heart failure) ICD Codes: I50.9 - Heart failure, unspecified SNOMED: 993227576, [id number] Qualifiers: Qualified Codes: I50.33 - Acute on chronic diastolic (congestive) heart failure (2) Atrial fibrillation with normal ventricular rate ICD Codes: I48.91 - Unspecified atrial fibrillation SNOMED: 66975026 (3) Depression ICD Codes: F32.9 - Major depressive disorder, single episode, unspecified SNOMED: 27729979 (4) Chronic pain ICD Codes: G89.29 - Other chronic pain SNOMED: 47280940 Qualifiers: Qualified Codes: G89.4 - Chronic pain syndrome (5) Morbid obesity ICD Codes: E66.01 - Morbid (severe) obesity due to excess calories SNOMED: 202910655 (6) Cocaine abuse ICD Codes: F14.10 - Cocaine abuse, uncomplicated SNOMED: 67917374 Status: stable, progressing Assessment/Plan: 64 year old man with reported history of heart failure, seizure, chronic pain who is presenting after recent discharge from outside hospital with shortness of breath consistent with heart failure exacerbation #Acute decompensated diastolic heart failure: possibly related to cocaine/ substance abuse given history as well as non-compliance as patient homeless - obtained records from [facility], please see prior note for summary of findings (H&P) - perform TTE: EF 55%, atrial fibrillation unable to characterize degree of diastolic dysfunction - Aggressive diuresis, patient improving with Lasix IV 80 BID - TSH, HIV, A1c, lipid panel unremarkable - Cardiology Dr. Campos following, appreciate recommendations #Atrial fibrillation: - [id number] vasc score elevated warranting anticoagulation but patient appears to be non compliant as an outpatient - risks of starting anticoagulation in a non-compliant patient with substance abuse outweigh benefits at this time, especially in the short term - currently rate controlled on diltiazem per Cardiology #ERIN vs CKD: Creatinine 2.5, was around ~ 2 per outside records in preceding month. worsening could be from cardiorenal etiology as significantly improving with aggressive diuresis - volume status as above - Nephrology consulted, Dr. Martin, appreciate recommendations #Cocaine Abuse #Depression/Anxiety - resume Seroquel 300 mg QHS - Psychiatry Dr. Fu consulted, appreciate recommendations #Chronic pain: generalized, has opioids as a home medication - limit opioids as the benefit of opioids for generalized chronic pain has no evidence #Reported history of seizure - phenytoin listed as an outpatient medication. has interaction with Seroquel. patient has been non-compliant with medication and has no evidence of seizure activity. possibly had prior seizure in setting of drug abuse - Neurology Dr. Ramirez following, appreciate recommendations #Dispo: He continues to be in gross volume overload and needs evaluation of his heart failure. He is of high risk of decompensation and from heart failure given his poor outpatient follow up. Anticipate > 4 days to diurese him. The patient requested manager social media to assist in placement although he acknowledges that he will not give up substance abuse I spent over 40 minutes on this case, with > 50% [id number] with patient and counseling/discussion of care plan. Also coordinated with Speech Language Pathologist Prn, On Call Pharmacy Technician, Psychiatrist, Neurologist, RN Subjective Date patient seen: Feb 09, 2020 Time patient seen: 07:00 Constitutional: Denies: chills, diaphoresis, fever HEENT: Denies: eye pain, blurred vision, double vision Cardiovascular: Reports: edema; Denies: chest pain, irregular heart rate, lightheadedness, palpitations Respiratory: Reports: shortness of breath; Denies: cough, orthopnea Gastrointestinal/Abdominal: Reports: abdomen distended; Denies: abdominal pain , nausea, vomiting Genitourinary: Denies: discharge, frequency Neurologic/Psychiatric: Denies: anxiety, depressed Endocrine: Denies: excessive sweating, unexplained weight gain Hematologic/Lymphatic: Denies: anemia, easy bleeding, easy bruising Allergies: Coded Allergies: No Known Allergies (Unverified , 02/07/20) Subjective patient much more calm today and was receptive to care including lasix, electrolyte repletion, telemetry. he is describing pain with taut skin around his inguinal area where there is distended scrotum Objective Last 24 Hour Vital Signs Date Time Temp Pulse Resp B/P (MAP) Pulse Ox O2 Delivery O2 Flow Rate FiO2 02/09/20 08:00 111 02/09/20 08:00 97.9 95 22 122/50 (74) 94 02/09/20 05:01 100 125/85 02/09/20 03:45 92 02/08/20 23:30 112 02/08/20 23:18 98.0 97 20 130/67 (88) 100 02/08/20 23:13 92 133/75 02/08/20 21:00 Room Air 02/08/20 20:20 97.8 02/08/20 20:00 97.8 95 20 137/73 (94) 100 02/08/20 19:05 128 02/08/20 17:02 110 130/78 02/08/20 16:46 110 02/08/20 16:00 97.7 95 20 130/78 (95) 100 Intake and Output 02/08/20 02/09/20 19:00 07:00 Intake Total 1360 ml Output Total 2850 ml 3575 ml Balance -1490 ml -3575 ml Intake Oral 1360 ml Output Urine Total 2850 ml 3575 ml Laboratory Tests 02/09/20 05:55: Sodium Level 140, Potassium Level 3.4L, Chloride Level 104, Carbon Dioxide Level 33H, Anion Gap 3L, Blood Urea Nitrogen 33H, Creatinine 1.7H, Estimat Glomerular Filtration Rate 49.1, Glucose Level 143H, Calcium Level 8.4L, Phosphorus Level 3.5, Magnesium Level 1.8, Troponin I 0.012, Pro-B-Type Natriuretic Peptide 1127H Height (Feet): 5 Height (Inches): 7.00 Weight (Pounds): 281 General Appearance: WD/WN, no apparent distress, alert EENT: PERRL/EOMI, normal ENT inspection, pharynx normal Neck: non-tender, normal alignment, supple, normal inspection Cardiovascular: normal peripheral pulses, normal rate, JVD, gallop/S3, irregularly irregular Respiratory/Chest: chest wall non-tender, normal breath sounds, no respiratory distress, decreased breath sounds Abdomen: non tender, no mass, distended Pelvis: no active bleeding Genitourinary/Rectal: other - very edematous non,tender scrotum Extremities: normal range of motion, non-tender Edema: 1+ Arm (L), 1+ Arm (R); 3+ Leg (L), 3+ Leg (R), 3+ Pedal (L), 3+ Pedal ( R) Edema: severe edema Neurologic: director of online education II-XII grossly normal, alert, oriented x 3, responsive, normal mood/affect Skin: normal pigmentation, warm/dry [facility] JoséM anuel Gtz Feb 09, 2020 09:24
--- NOTE | 2020-02-09 09:42 | Cardiac Electrophysiology PN ---
Assessment/Plan Assessment/Plan 1. Congestive heart failure exacerbation. This is likely due to diastolic dysfunction. His echocardiogram showed ejection fraction of 55%. Diuresing well on Lasix 80 mg IV b.i.d. 2. Atrial fibrillation, rate better on Cardizem 60 mg every 6 hours, that will have help for his blood pressure as well as atrial fibrillation. Increase Eliquis to 5 mg b.i.d. 3. Obesity. 4. Psychiatric. The patient is on Seroquel. 5. Severe anemia with hemoglobin of 8. 6. Renal failure. Creatinine of 2.5.Improved to 1.75 DW RN Subjective Subjective Diuresing heavily and is 5 liters negative after 80 iv Lasix. Feeling better Objective Last 24 Hour Vital Signs Date Time Temp Pulse Resp B/P (MAP) Pulse Ox O2 Delivery O2 Flow Rate FiO2 02/09/20 09:00 Room Air 02/09/20 08:00 111 02/09/20 08:00 97.9 95 22 122/50 (74) 94 02/09/20 05:01 100 125/85 02/09/20 03:45 92 02/08/20 23:30 112 02/08/20 23:18 98.0 97 20 130/67 (88) 100 02/08/20 23:13 92 133/75 02/08/20 21:00 Room Air 02/08/20 20:20 97.8 02/08/20 20:00 97.8 95 20 137/73 (94) 100 02/08/20 19:05 128 02/08/20 17:02 110 130/78 02/08/20 16:46 110 02/08/20 16:00 97.7 95 20 130/78 (95) 100 Intake and Output 02/08/20 02/09/20 19:00 07:00 Intake Total 1360 ml Output Total 2850 ml 3575 ml Balance -1490 ml -3575 ml Intake Oral 1360 ml Output Urine Total 2850 ml 3575 ml Laboratory Tests Test 02/09/20 05:55 Sodium Level 140 MMOL/L (136-145) Potassium Level 3.4 MMOL/L (3.5-5.1) L Chloride Level 104 MMOL/L (98-107) Carbon Dioxide Level 33 MMOL/L (21-32) H Anion Gap 3 mmol/L (5-15) L Blood Urea Nitrogen 33 mg/dL (7-18) H Creatinine 1.7 MG/DL (0.55-1.30) H Estimat Glomerular Filtration Rate 49.1 mL/min (>60) Glucose Level 143 MG/DL (74-106) H Calcium Level 8.4 MG/DL (8.5-10.1) L Phosphorus Level 3.5 MG/DL (2.5-4.9) Magnesium Level 1.8 MG/DL (1.8-2.4) Troponin I 0.012 ng/mL (0.000-0.056) Pro-B-Type Natriuretic Peptide 1127 pg/mL (0-125) H Microbiology Date/Time Source Procedure Growth Status 02/07/20 09:15 Nasal Nares MRSA Culture - Final Staphylococcus Aureus - Mrsa Complete 02/07/20 09:15 Rectal Mucosa VRE Culture - Final NO VANCOMYCIN RESISTANT ENTEROCOCCUS ... Complete Objective HEAD AND NECK: Shows positive JVD. LUNGS: Decreased breath sounds. CARDIOVASCULAR: Shows irregularly irregular S1 and S2 with no gallop or murmur. ABDOMEN: Obese. EXTREMITIES: 3+ pitting edema. Jorden Campos MD Feb 09, 2020 09:42
--- NOTE | 2020-02-09 11:55 | Neurology Progress Note ---
Interim History Interim History ROS Limited/Unobtainable: No Interim History less agitated, ambulated to bathroom Objective Physical Exam Last Vital Signs Date Time Temp Pulse Resp B/P (MAP) Pulse Ox O2 Delivery O2 Flow Rate FiO2 02/09/20 09:00 Room Air 02/09/20 08:00 111 02/09/20 08:00 97.9 22 122/50 (74) 94 02/07/20 22:24 2.0 02/07/20 10:06 28 Laboratory Tests Test 02/09/20 05:55 Sodium Level 140 MMOL/L (136-145) Potassium Level 3.4 MMOL/L (3.5-5.1) L Chloride Level 104 MMOL/L (98-107) Carbon Dioxide Level 33 MMOL/L (21-32) H Anion Gap 3 mmol/L (5-15) L Blood Urea Nitrogen 33 mg/dL (7-18) H Creatinine 1.7 MG/DL (0.55-1.30) H Estimat Glomerular Filtration Rate 49.1 mL/min (>60) Glucose Level 143 MG/DL (74-106) H Calcium Level 8.4 MG/DL (8.5-10.1) L Phosphorus Level 3.5 MG/DL (2.5-4.9) Magnesium Level 1.8 MG/DL (1.8-2.4) Troponin I 0.012 ng/mL (0.000-0.056) Pro-B-Type Natriuretic Peptide 1127 pg/mL (0-125) H Head: normocophalic Neck: no rigidity EENT: benign Neurologic Exam Mental Status: oriented x4 Cranial Nerve II: visual davis Cranial Nerves III, IV, : PERRLA Cranial Nerve VII: no facial asymmetry Stance: normal Impression/Recommendations Problems: (1) Morbid obesity (2) Chronic pain (3) Atrial fibrillation with normal ventricular rate (4) Heart failure (5) Depression (6) Acute exacerbation of CHF (congestive heart failure) (7) Cocaine abuse (8) Anxiety (9) ERIN (acute kidney injury) (10) Anemia Status: stable, progressing Diagnostic Impression Seizure disorder Cocaine abuse Likely provoked no a eds pT OT Jered Ramirez MD Feb 09, 2020 11:55
[2020-02-09 12:00] VITALS: BP 137/92
[2020-02-09] MEDS: Eliquis 5mg tablet ORAL SCH (17:13)
[2020-02-09 20:00] VITALS: BP 142/78
[2020-02-09] MEDS: traMADol 50mg tab ORAL PRN (21:37)
--- NOTE | 2020-02-09 22:15 | Psych Consult Progress Note ---
Psychiatry Progress Note Psychiatry Progress Note Subjective the pt was rude and entitled Medications Current Medications Medications (Trade) Dose Ordered Sig/Radha Route PRN Reason Start Time Stop Time Status Last Admin Dose Admin Acetaminophen (Tylenol) 650 mg Q4H PRN ORAL Mild Pain (Pain Scale 1-3) 02/07/20 13:45 03/08/20 13:44 Al Hydroxide/Mg Hydroxide (Mylanta) 30 ml Q6H PRN ORAL reflux pain 02/07/20 18:45 03/08/20 18:44 02/07/20 18:50 Apixaban (Eliquis) 5 mg BID ORAL 02/09/20 18:00 05/09/20 17:59 02/09/20 17:13 Dextrose (Dextrose 50%) 25 ml Q30M PRN IV Hypoglycemia 02/07/20 08:00 05/07/20 07:59 Dextrose (Dextrose 50%) 50 ml Q30M PRN IV Hypoglycemia 02/07/20 08:00 05/07/20 07:59 Diltiazem HCl (Cardizem Tab) 60 mg EVERY 6 HOURS ORAL 02/08/20 12:00 03/09/20 11:59 02/09/20 17:12 Famotidine (Pepcid I.v.) 20 mg Q12H PRN IVP reflux pain 02/07/20 18:45 03/08/20 18:44 Furosemide (Lasix) 80 mg Q12H IV 02/09/20 09:00 03/09/20 11:59 02/09/20 08:44 Quetiapine Fumarate (SEROqueL) 300 mg QHS ORAL 02/07/20 21:00 03/23/20 20:59 02/09/20 21:00 Tramadol HCl (Ultram) 50 mg Q6H PRN ORAL moderate to severe pain 02/07/20 13:45 02/14/20 13:44 02/09/20 21:37 Allergies: Coded Allergies: No Known Allergies (Unverified , 02/07/20) Objective Data Height (Feet): 5 Height (Inches): 7.00 Weight (Pounds): 281 General Appearance: WD/WN, no apparent distress, alert, alert oriented x3 Additional Comments: awake, oriented . Mood is anxious. Affect is flat. Thought process, concrete. Thought content, no suicidal or homicidal ideation. Cognition is impaired. Insight and judgment is impaired. Assessment/Plan Problem List: (1) Anxiety ICD Codes: F41.9 - Anxiety disorder, unspecified SNOMED: 80849665 (2) Depression ICD Codes: F32.9 - Major depressive disorder, single episode, unspecified SNOMED: 95253604 Status: stable, progressing Assessment/Plan: cocaine abuse vs dependence cont seroquel the pt is reluctant to change meds Yassine Fu MD Feb 09, 2020 22:15
[2020-02-10] VITALS: BP 105/69
[2020-02-10 04:00] VITALS: BP 116/71
[2020-02-10 06:00] VITALS: BP 116/71
[2020-02-10] MEDS: dilTIAZem HCl 60mg tab ORAL SCH ×3 (06:00→12:00)
[2020-02-10 07:07] LABS: ANION GAP 0 mmol/L (5-15); BLOOD UREA NITROGEN 25 mg/dL (7-18); CALCIUM 8.1 MG/DL (8.5-10.1); CARBON DIOXIDE 35 MMOL/L (21-32); CHLORIDE 102 MMOL/L (98-107); CREATININE 1.3 MG/DL (0.55-1.30); POTASSIUM 3.4 MMOL/L (3.5-5.1); SODIUM 137 MMOL/L (136-145)
[2020-02-10 07:24] LABS: HEMATOCRIT 25.7 % (42.0-52.0); HEMOGLOBIN 7.3 G/DL (14.2-18.0); MEAN CORPUSCULAR VOLUME 84 FL (80-99); PLATELET COUNT 184 K/UL (150-450); RED BLOOD COUNT 3.05 M/UL (4.70-6.10); RED CELL DISTRIBUTION WIDTH 20.8 % (11.6-14.8); WHITE BLOOD COUNT 6.6 K/UL (4.8-10.8)
[2020-02-10] MEDS: Eliquis 5mg tablet ORAL SCH (08:31)
--- NOTE | 2020-02-10 09:13 | General Progress Note ---
Assessment/Plan Problem List: (1) Acute exacerbation of CHF (congestive heart failure) ICD Codes: I50.9 - Heart failure, unspecified SNOMED: 738364187, [id number] Qualifiers: Qualified Codes: I50.33 - Acute on chronic diastolic (congestive) heart failure (2) Atrial fibrillation with normal ventricular rate ICD Codes: I48.91 - Unspecified atrial fibrillation SNOMED: 86850739 (3) Depression ICD Codes: F32.9 - Major depressive disorder, single episode, unspecified SNOMED: 41077008 Qualifiers: Qualified Codes: F32.9 - Major depressive disorder, single episode, unspecified (4) Chronic pain ICD Codes: G89.29 - Other chronic pain SNOMED: 00478700 Qualifiers: Qualified Codes: G89.4 - Chronic pain syndrome (5) Morbid obesity ICD Codes: E66.01 - Morbid (severe) obesity due to excess calories SNOMED: 226245989 (6) Cocaine abuse ICD Codes: F14.10 - Cocaine abuse, uncomplicated SNOMED: 85201257 (7) Abnormal LFTs ICD Codes: R94.5 - Abnormal results of liver function studies SNOMED: 368699715 (8) Iron deficiency anemia ICD Codes: D50.9 - Iron deficiency anemia, unspecified SNOMED: 45802894 Status: stable, progressing Assessment/Plan: 64 year old man with reported history of heart failure, seizure, chronic pain who is presenting after recent discharge from outside hospital with shortness of breath consistent with heart failure exacerbation #Acute decompensated diastolic heart failure: possibly related to cocaine/ substance abuse given history as well as non-compliance as patient homeless. significantly improving with diuresis - obtained records from [facility], please see prior note for summary of findings (H&P) - perform TTE: EF 55%, atrial fibrillation unable to characterize degree of diastolic dysfunction - Aggressive diuresis, patient improving with Lasix IV 80 BID - replete electrolytes aggressively given atrial fibrillation - TSH, HIV, A1c, lipid panel unremarkable - Cardiology Dr. Campos following, appreciate recommendations #Atrial fibrillation: - [id number] vasc score elevated warranting anticoagulation but patient appears to be non compliant as an outpatient - contine eliquis 5 BID (full dose as kidney function improved) - currently rate controlled on diltiazem per Cardiology #ERIN vs CKD: Creatinine 2.5, was around ~ 2 per outside records in preceding month. worsening could be from cardiorenal etiology as significantly improving with aggressive diuresis - volume status as above - Nephrology consulted, Dr. Martin, appreciate recommendations #Cocaine Abuse #Depression/Anxiety - resume Seroquel [facility] - Psychiatry Dr. Fu consulted, appreciate recommendations #Chronic pain: generalized, has opioids as a home medication - limit opioids as the benefit of opioids for generalized chronic pain has no evidence #Reported history of seizure - phenytoin listed as an outpatient medication. has interaction with Seroquel. patient has been non-compliant with medication and has no evidence of seizure activity. possibly had prior seizure in setting of drug abuse - Neurology Dr. Ramirez following, appreciate recommendations. hold AED at this time #Iron deficiency anemia: unclear, possibly nutritional deficiency given homelessness. consider GI bleed as well given age 64 without screening. no evidence of active bleed at this time - start iron repletion - would benefit from outpatient follow up and diagnostic colonoscopy #Abnormal LFT: unclear, possibly congestive hepatopathy vs underlying liver disease. no evidence of decompensated cirrhosis clinically - patient refusing abdominal ultrasound and further workup - would benefit from outpatient management #Dispo: He continues to be in gross volume overload and needs evaluation of his heart failure. He is of high risk of decompensation and from heart failure given his poor outpatient follow up. Anticipate > 4 days to diurese him. The patient requested social services counselor to assist in placement although he acknowledges that he will not give up substance abuse. Today, he reported that he would leave. I strongly recommended that he stay in order to fully diurese him and establish him with outpatient follow up. He reported that he was already feeling better and that he knows what to do if he gets sick again. Specifically, he stated that he understood the risk of leaving could result in worsening heart failure and . He knows to seek medical care for lasix specifically he said, if he were to get sick or short of breath again. He clearly demonstrated medical decision making capacity, but I still recommended he stay for continued care. I spent over 40 minutes on this case, with > 50% [id number] with patient and counseling/discussion of care plan. Also coordinated with Forest Ranger Technician, Credit Rating Checker, Psychiatrist, Neurologist, RN Subjective Date patient seen: Feb 10, 2020 Time patient seen: 07:30 Constitutional: Denies: chills, diaphoresis, fever HEENT: Denies: eye pain, blurred vision, tearing, double vision Cardiovascular: Reports: edema; Denies: chest pain, irregular heart rate, lightheadedness, palpitations Respiratory: Reports: shortness of breath; Denies: cough, orthopnea Gastrointestinal/Abdominal: Reports: abdomen distended; Denies: abdominal pain , nausea, vomiting Genitourinary: Denies: burning, discharge, frequency Neurologic/Psychiatric: Denies: emotional problems Endocrine: Denies: excessive sweating, flushing, intolerance to cold Hematologic/Lymphatic: Denies: easy bleeding, easy bruising Allergies: Coded Allergies: No Known Allergies (Unverified , 02/07/20) All Systems: reviewed and negative except above Subjective this morning patient reported feeling "ok." said he would leave soon as he needed to take care of personal matters. reported improving swelling and shortness of breath Objective Last 24 Hour Vital Signs Date Time Temp Pulse Resp B/P (MAP) Pulse Ox O2 Delivery O2 Flow Rate FiO2 02/10/20 07:43 122 02/10/20 06:00 99 116/71 02/10/20 04:00 98.1 100 18 116/71 (86) 95 02/10/20 04:00 110 02/10/20 00:00 98.8 112 20 105/69 (81) 97 02/10/20 00:00 112 105/69 02/10/20 00:00 112 02/09/20 22:15 97.7 02/09/20 21:00 Room Air 02/09/20 20:00 111 02/09/20 20:00 98.1 102 19 142/78 (99) 97 02/09/20 17:12 110 137/92 02/09/20 12:34 110 137/92 02/09/20 12:00 97.7 97 20 137/92 (107) 100 02/09/20 12:00 110 Intake and Output 02/09/20 02/10/20 19:00 07:00 Output Total 2850 ml Balance -2850 ml Output Urine Total 2850 ml # Voids 3 Laboratory Tests 02/10/20 05:35: White Blood Count 6.6, Red Blood Count 3.05L, Hemoglobin 7.3L, Hematocrit 25.7L , Mean Corpuscular Volume 84, Mean Corpuscular Hemoglobin 23.9L, Mean Corpuscular Hemoglobin Concent 28.4L, Red Cell Distribution Width 20.8H, Platelet Count 184, Mean Platelet Volume 6.5, Neutrophils (%) (Auto) , Lymphocytes (%) (Auto) , Monocytes (%) (Auto) , Eosinophils (%) (Auto) , Basophils (%) (Auto) , Neutrophils % (Manual) [Pending], Lymphocytes % (Manual) [Pending], Platelet Estimate [Pending], Platelet Morphology [Pending], Sodium Level 137, Potassium Level 3.4L, Chloride Level 102, Carbon Dioxide Level 35H, Anion Gap 0L, Blood Urea Nitrogen 25H, Creatinine 1.3, Estimat Glomerular Filtration Rate > 60, Glucose Level 92, Calcium Level 8.1L, Magnesium Level 1.7L Height (Feet): 5 Height (Inches): 7.00 Weight (Pounds): 266 General Appearance: WD/WN, no apparent distress, alert EENT: PERRL/EOMI, normal ENT inspection, pharynx normal Neck: non-tender, normal alignment, supple, normal inspection Cardiovascular: JVD, tachycardia, gallop/S3, irregularly irregular Respiratory/Chest: chest wall non-tender, lungs clear, normal breath sounds, no respiratory distress Abdomen: normal bowel sounds, no mass, distended Pelvis: no active bleeding Extremities: normal range of motion, non-tender, no calf tenderness Edema: no edema noted Arm (L), no edema noted Arm (R); 3+ Leg (L), 3+ Leg (R), 3+ Pedal (L), 3+ Pedal (R) Edema: severe edema Neurologic: public health technologist II-XII grossly normal, no motor/sensory deficits, alert, oriented x 3, responsive, normal mood/affect Skin: normal pigmentation, warm/dry Srinivasa Franks M.D. Feb 10, 2020 09:13
--- NOTE | 2020-02-10 13:21 | Nephrology Progress Note ---
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 #acute on chronic decompensated CHf #HTN #h/o coccaine use #Anemia #HLD - patient refusing meds - renal US- > no hydronephrosis - continue lasix 80 IV BID - strict I&Os - place johnson - monitor weights - consider spot dose with metolazone - check iron panel - monitor hemoglobin level time spent 70 min- greater than 50% on care coordination and counseling Subjective Subjective Cr improved to 2.1 uop 1.7L yesterday refusing meds Objective Objective Last 24 Hour Vital Signs Date Time Temp Pulse Resp B/P (MAP) Pulse Ox O2 Delivery O2 Flow Rate FiO2 02/10/20 09:00 Room Air 02/10/20 07:43 122 02/10/20 06:00 99 116/71 02/10/20 04:00 98.1 100 18 116/71 (86) 95 02/10/20 04:00 110 02/10/20 00:00 98.8 112 20 105/69 (81) 97 02/10/20 00:00 112 105/69 02/10/20 00:00 112 02/09/20 22:15 97.7 02/09/20 21:00 Room Air 02/09/20 20:00 111 02/09/20 20:00 98.1 102 19 142/78 (99) 97 02/09/20 17:12 110 137/92 Intake and Output 02/09/20 02/10/20 19:00 07:00 Output Total 2850 ml Balance -2850 ml Output Urine Total 2850 ml # Voids 3 Laboratory Tests 02/10/20 05:35: White Blood Count 6.6, Red Blood Count 3.05L, Hemoglobin 7.3L, Hematocrit 25.7L , Mean Corpuscular Volume 84, Mean Corpuscular Hemoglobin 23.9L, Mean Corpuscular Hemoglobin Concent 28.4L, Red Cell Distribution Width 20.8H, Platelet Count 184, Mean Platelet Volume 6.5, Neutrophils (%) (Auto) , Lymphocytes (%) (Auto) , Monocytes (%) (Auto) , Eosinophils (%) (Auto) , Basophils (%) (Auto) , Differential Total Cells Counted 100, Neutrophils % ( Manual) 54, Lymphocytes % (Manual) 30, Monocytes % (Manual) 10, Eosinophils % ( Manual) 5H, Basophils % (Manual) 1, Band Neutrophils 0, Platelet Estimate Adequate, Platelet Morphology Normal, Hypochromasia 3+, Anisocytosis 2+, Sodium Level 137, Potassium Level 3.4L, Chloride Level 102, Carbon Dioxide Level 35H, Anion Gap 0L, Blood Urea Nitrogen 25H, Creatinine 1.3, Estimat Glomerular Filtration Rate > 60, Glucose Level 92, Calcium Level 8.1L, Magnesium Level 1.7L Height (Feet): 5 Height (Inches): 7.00 Weight (Pounds): 266 Dom Martin M.D. Feb 10, 2020 13:21
--- NOTE | 2020-02-10 16:15 | Discharge Summary ---
Discharge Summary Hospital Course Date of Admission Feb 07, 2020 at 08:44 Date of Discharge Feb 10, 2020 at 14:17 Admitting Diagnosis Congestive heart failure Reason for Hospitalization: treatment of gross volume overload HPI Harpreet Branham is a 64 year old male who was admitted on Feb 07, 2020 at 08:44 for Congestive Heart Failure He is a 64 year old male with a history of CHF who was reportedly just discharged from [facility] Care day prior to admission, who presented with recurrent shortness of breath. He refused to answer most questions. History per ED report was that he was admitted to [facility] and discharged day prior to admission. He presented again with shortness of breath. Evaluation in the ED showed EKG/ troponin reassuring for ACS although BNP was very elevated. His exam also was consistent with volume overload so he was given Lasix and then admitted for further management of heart failure. Consultations Cardiology - Dr. Campso, Nephrology - Dr. Martin, Psychiatry - Dr. Fu, Neurology - Dr. Ramirez Procedures N/A Hospital Course On admission, the patient was highly resistant to care and abusive towards all caregivers. After being told he would be discharged if he does not accept basic care such as vitals, telemetry, and diuresis, he would be discharged. He agreed and diuresed very well on Lasix IV pushes. He had significant improvement in symptoms and was able to ambulate without symptoms. In addition, his kidney function also significantly improved with aggressive diuresis, consistent with cardiorenal syndrome. He was noted to be in atrial fibrillation and was started on eliquis for stroke prevention. On 02/10/20 he left against medical advice as he felt significantly improved and did not want to receive medications any longer. He clearly demonstrated medical decision making capacity, and understood that his heart could get worse again, as it has many times in the past, which could lead to . Problems addressed during hospitalization: #Acute decompensated diastolic heart failure: possibly related to cocaine/ substance abuse given history as well as non-compliance as patient homeless. significantly improving with diuresis - perform TTE: EF 55%, atrial fibrillation unable to characterize degree of diastolic dysfunction - Aggressive diuresis, patient improving with Lasix IV 80 BID - replete electrolytes aggressively given atrial fibrillation - TSH, HIV, A1c, lipid panel unremarkable - Cardiology Dr. Campos following, appreciate recommendations #Atrial fibrillation: - [id number] vasc score elevated warranting anticoagulation but patient appears to be non compliant as an outpatient - contine eliquis 5 BID (full dose as kidney function improved) - currently rate controlled on diltiazem per Cardiology #ERIN vs CKD: Creatinine 2.5, was around ~ 2 per outside records in preceding month. worsening could be from cardiorenal etiology as significantly improving with aggressive diuresis - volume status as above - Nephrology consulted, Dr. Martin, appreciate recommendations #Cocaine Abuse #Depression/Anxiety - resume Seroquel [facility] - Psychiatry Dr. Fu consulted, appreciate recommendations #Chronic pain: generalized, has opioids as a home medication - limit opioids as the benefit of opioids for generalized chronic pain has no evidence #Reported history of seizure - phenytoin listed as an outpatient medication. has interaction with Seroquel. patient has been non-compliant with medication and has no evidence of seizure activity. possibly had prior seizure in setting of drug abuse - Neurology Dr. Ramirez following, appreciate recommendations. hold AED at this time #Iron deficiency anemia: unclear, possibly nutritional deficiency given homelessness. consider GI bleed as well given age 64 without screening. no evidence of active bleed at this time - start iron repletion - would benefit from outpatient follow up and diagnostic colonoscopy #Abnormal LFT: unclear, possibly congestive hepatopathy vs underlying liver disease. no evidence of decompensated cirrhosis clinically - patient refusing abdominal ultrasound and further workup - would benefit from outpatient management Discharge Condition Upon Discharge: improving, stable Discharge Vital Signs Last Vital Signs Date Time Temp Pulse Resp B/P (MAP) Pulse Ox O2 Delivery O2 Flow Rate FiO2 02/10/20 09:00 Room Air 02/10/20 07:43 122 02/10/20 06:00 116/71 02/10/20 04:00 98.1 18 95 02/07/20 22:24 2.0 02/07/20 10:06 28 Discharge Disposition Patient was discharged to back to streets per his preference Discharge Diagnoses: (1) Acute diastolic heart failure (2) ERIN (acute kidney injury) (3) Anxiety (4) Cocaine abuse (5) Abnormal LFTs (6) Iron deficiency anemia (7) Anemia (8) Depression Srinivasa Franks M.D. Feb 10, 2020 16:15
--- NOTE | 2020-02-10 21:28 | Neurology Progress Note ---
Interim History Interim History ROS Limited/Unobtainable: No Interim History ok to dc Objective Physical Exam Last Vital Signs Date Time Temp Pulse Resp B/P (MAP) Pulse Ox O2 Delivery O2 Flow Rate FiO2 02/10/20 09:00 Room Air 02/10/20 07:43 122 02/10/20 06:00 116/71 02/10/20 04:00 98.1 18 95 02/07/20 22:24 2.0 02/07/20 10:06 28 Laboratory Tests Test 02/10/20 05:35 White Blood Count 6.6 K/UL (4.8-10.8) Red Blood Count 3.05 M/UL (4.70-6.10) L Hemoglobin 7.3 G/DL (14.2-18.0) L Hematocrit 25.7 % (42.0-52.0) L Mean Corpuscular Volume 84 FL (80-99) Mean Corpuscular Hemoglobin 23.9 PG (27.0-31.0) L Mean Corpuscular Hemoglobin Concent 28.4 G/DL (32.0-36.0) L Red Cell Distribution Width 20.8 % (11.6-14.8) H Platelet Count 184 K/UL (150-450) Mean Platelet Volume 6.5 FL (6.5-10.1) Neutrophils (%) (Auto) % (45.0-75.0) Lymphocytes (%) (Auto) % (20.0-45.0) Monocytes (%) (Auto) % (1.0-10.0) Eosinophils (%) (Auto) % (0.0-3.0) Basophils (%) (Auto) % (0.0-2.0) Differential Total Cells Counted 100 Neutrophils % (Manual) 54 % (45-75) Lymphocytes % (Manual) 30 % (20-45) Monocytes % (Manual) 10 % (1-10) Eosinophils % (Manual) 5 % (0-3) H Basophils % (Manual) 1 % (0-2) Band Neutrophils 0 % (0-8) Platelet Estimate Adequate Platelet Morphology Normal Hypochromasia 3+ Anisocytosis 2+ Sodium Level 137 MMOL/L (136-145) Potassium Level 3.4 MMOL/L (3.5-5.1) L Chloride Level 102 MMOL/L (98-107) Carbon Dioxide Level 35 MMOL/L (21-32) H Anion Gap 0 mmol/L (5-15) L Blood Urea Nitrogen 25 mg/dL (7-18) H Creatinine 1.3 MG/DL (0.55-1.30) Estimat Glomerular Filtration Rate > 60 mL/min (>60) Glucose Level 92 MG/DL (74-106) Calcium Level 8.1 MG/DL (8.5-10.1) L Magnesium Level 1.7 MG/DL (1.8-2.4) L Head: normocophalic Neck: no rigidity EENT: benign Neurologic Exam Mental Status: oriented x4 Cranial Nerve II: visual davis Cranial Nerves III, IV, : PERRLA Cranial Nerve VII: no facial asymmetry Stance: normal Impression/Recommendations Problems: (1) Morbid obesity (2) Chronic pain (3) Atrial fibrillation with normal ventricular rate (4) Heart failure (5) Depression (6) Acute exacerbation of CHF (congestive heart failure) (7) Cocaine abuse (8) Anxiety (9) ERIN (acute kidney injury) (10) Anemia Status: stable, progressing Diagnostic Impression Seizure disorder Cocaine abuse Likely provoked no a eds pT OT Jered Ramirez MD Feb 10, 2020 21:28
--- NOTE | 2020-02-10 23:25 | Psych Consult Progress Note ---
Psychiatry Progress Note Psychiatry Progress Note Neurological/Psychiatric: Reports: anxiety, depressed, emotional problems Allergies: Coded Allergies: No Known Allergies (Unverified , 02/07/20) Objective Data Height (Feet): 5 Height (Inches): 7.00 Weight (Pounds): 266 Additional Comments: awake, oriented . Mood is anxious. Affect is flat. Thought process, concrete. Thought content, no suicidal or homicidal ideation. Cognition is impaired. Insight and judgment is impaired. Assessment/Plan Problem List: (1) Anxiety ICD Codes: F41.9 - Anxiety disorder, unspecified SNOMED: [id number] (2) Depression ICD Codes: F32.9 - Major depressive disorder, single episode, unspecified SNOMED: 05140562 Qualifiers: Qualified Codes: F32.9 - Major depressive disorder, single episode, unspecified Status: stable, progressing Assessment/Plan: cocaine abuse vs dependence cont seroquel the pt is reluctant to change Yassine Jurado MD Feb 10, 2020 23:25
== END 2020-02-10 14:17 | disposition left against medical advice (07) | DRG 194 ==
LOC: EDBD 05:02 → EMR 05:13 → EDBEDREQ 05:42 → 2E 08:44
DX: I13.0 Hypertensive heart and chronic kidney disease with heart failure and stage 1 through stage 4 chronic kidney disease, or unspecified chronic kidney disease (principal); I50.33 Acute on chronic diastolic (congestive) heart failure; N18.9 Chronic kidney disease, unspecified; E66.01 Morbid (severe) obesity due to excess calories; Z68.41 Body mass index [BMI] 40.0-44.9, adult; N17.9 Acute kidney failure, unspecified; G89.29 Other chronic pain; Z59.0 Homelessness; F14.10 Cocaine abuse, uncomplicated; R56.9 Unspecified convulsions; R94.5 Abnormal results of liver function studies; D50.9 Iron deficiency anemia, unspecified; F32.9 Major depressive disorder, single episode, unspecified; F41.9 Anxiety disorder, unspecified; I48.20 Chronic atrial fibrillation, unspecified
CPT/HCPCS: 36415; 36600; 71045; 76770; 80048; 80053; 80061; 80307; 81003; 82044; 82570; 82728; 82803; 83036; 83540; 83550; 83735; 83880; 84100; 84133; 84300; 84443; 84484; 85007; 85025; 86703; 87081; 93005; 93306; 96374; 96375; 99285; J8499